=== PATIENT | female | born 1990 | race Caucasian/White ===

== ENCOUNTER 2016-11-08 23:13 | Emergency (ER) | payer OTHER ==
[~2016-11-08 23:13] MED LIST: ACETAMINOPHEN PO; ALBUTEROL17 GM INH; AMOXICILLIN500 M1 PO; AMOXIL500 M1 PO; AUGMENTIN PO; BACTRIM DS TABL1 TA1 PO; BACTRIM DS TABL1 TAB PO; BIRTH CONTROL; CIPRO PO; CORICIDIN COUGH1 TAB PO; DICLOFENAC PO; FLEXERIL PO; FLEXERIL10 MG PO; FLOMAX0.4 MG PO; IBUPROFEN PO; LEVOFLOXACIN500 MG PO; LORTAB 10-5001 EACH PO; METRONIDAZOLE PO; NAPROSYN500 MG PO; NAPROXEN500 M1 PO; NICOTINE PATCH1 EACH TD; NO MEDICATIONS; ORUDIS75 M1 DOB; PEN-VEE K PO; PERCOCET 10/3251 TAB PO; PERCOCET PO; PERCOCET5/325 PO; PHENERGAN PO; PHENERGAN25 MG PO; PRENATAL VITAMI1 TA3 PO; PYRIDIUM100 MG PO; ROBAXIN500 MG PO; SKELAXIN PO; TYLOX 5/500 CAP1 CAP PO; VICODIN 5/1 TAB 5/50 PO; VICODIN 5/500 T1 TAB PO; ZOFRAN ODT4 MG PO; ZOFRAN PO
== END 2016-11-08 23:30 | disposition left against medical advice (07) ==
LOC: CED 23:13
DX: Z53.21 Procedure and treatment not carried out due to patient leaving prior to being seen by health care provider (principal)
CPT/HCPCS: 99282

== ENCOUNTER 2016-11-11 07:01 | Emergency (ER) | payer OTHER ==
[2016-11-11 09:01] LABS: AMPHETAMINE POS (NEG); BARBITURATES NEG (NEG); BENZODIAZEPINES NEG (NEG); COCAINE NEG (NEG); MARIJUANA NEG (NEG); OPIATES POS (NEG); TRICYCLIC ANTIDEPRESSANTS NEG (NEG); U METHADONE NEG (NEG)
== END 2016-11-11 15:06 ==
LOC: CED 07:01
PROVIDERS: Emergency Medicine
DX: T40.1X1A Poisoning by heroin, accidental (unintentional), initial encounter (principal); F19.10 Other psychoactive substance abuse, uncomplicated; R45.851 Suicidal ideations; R56.9 Unspecified convulsions; F90.9 Attention-deficit hyperactivity disorder, unspecified type; F31.9 Bipolar disorder, unspecified; F17.200 Nicotine dependence, unspecified, uncomplicated
CPT/HCPCS: 80307; 84703; 96372; 96374; 99285; J3486

== ENCOUNTER 2016-11-11 15:58 | Inpatient (IN) | payer OTHER ==
--- NOTE | ~2016-11-11 | DS ---
Unit #: [id number] #: [id number] Patient: JUAN MCKEE [id number] [facility] [address] [place] [address] [id number] MR#: [id number] NAME: JAUN MCKEE ROOM: P173 Age: 26 Sex: F Admission Date: 11/11/2016 : 1990 Discharge Date: 11/14/2016 Attending Physician: Patrice Albrecht M.D. Primary Care Physician: Sarah [facility] DISCHARGE SUMMARY REASON FOR ADMISSION Depression. DIAGNOSTIC STUDIES LABORATORY RESULTS: Remarkable for urine drug screen positive for amphetamine and opioids. HOSPITAL COURSE The patient was admitted to inpatient unit on 11/11/2016 and discharged on 11/14/2016. The patient showed improvement, compliant and cooperative, but requested for discharge. The patient was not suicidal or homicidal. The patient hold was up at this time and the patient is not holdable at this time anymore. Subsequently, the patient discharged with a plan to follow up in outpatient program. DISCHARGE MEDICATIONS Effexor XR 225 mg daily for depression, Topamax 50 mg in the morning and 150 mg in the morning, Relafen 500 mg b.i.d. for pain, Keppra 500 mg b.i.d. for seizure, Proventil inhaler b.i.d. The patient was advised to follow up with medical doctor for the prescription as the patient left unplanned at this time. DISCHARGE DIAGNOSES Psychiatric: 1. Mood disorder, not otherwise specified, F32.9. 2. Opioid use disorder, severe, F11.20. 3. Amphetamine use disorder, moderate, F15.20. Secondary diagnosis: Deferred. Medical diagnosis: Lupus. Stressors: Psychosocial stressors. DISCHARGE INSTRUCTIONS The patient to follow up as per social welfare research worker. CONDITION ON DISCHARGE The patient was pleasant and cooperative. Denied any thoughts of harming self or others. Denied any psychotic symptom. PROGNOSIS Guarded. Unit #: [id number] #: [id number] Patient: JUAN MCKEE DIET AND ACTIVITY As tolerated. Dictated by... Srinivas Robert/pepe TD: 11/15/2016 00:07 JOB #: [id number] DISCHARGE SUMMARY Page 1 of 1 X Patrice Albrecht MD DISCHARGE SUMMARY
--- NOTE | ~2016-11-11 | A ---
[facility] Nutrition Therapy DATE: 11/12/16 Patient: JUAN MCKEE Physician: JADA Address: [address] Room/Bed: [address], Zip: [place] [address] Admit Date: 11/11/16 Date of : [birth year] Height: 5 6 Weight: 154 70.3 NUTRITIONAL ASSESSMENT: REASON: NUTRITION RISK POINT- UNINTENTIONAL WEIGHT LOSS PATIENT ADMITTED FOR OVERDOSE, DEPRESSION, AND SUBSTANCE ABUSE PMH: LUPUS, LONG HX SUBSTANCE ABUSE Anthropometrics: HT: 5'6", WT: 151#, BMI: 24.4, %IBW: 116 Labs: NO LABS AVAILABLE Meds: TOPAMAX, KEPPRA Assessment: PATIENT IS A 26 Y/O FEMALE ADMITTED FOR OVERDOSE, DEPRESSION, AND SUBSTANCE ABUSE. PATIENT IS CURRENTLY UNEMPLOYED, LIVES WITH HER MOTHER, SMOKES 1 PPD, AND ATTEMPTED TO OVERDOSE ON HEROIN. PATIENT WAS [facility]ASED [facility] A FEW DAYS AGO. SINCE THEN SHE HAS BEEN NON-COMPLIANT WITH MEDICATIONS. PATIENT HAS A HX OF DAILY HEROIN AND METH USE PRIOR TO GOING TO [facility]. HER TOX SCREEN WAS POSITIVE FOR BOTH HEROIN AND METH. PATIENT WAS IN ED TWICE OVER LAST FEW DAYS D/T OVERDOSE AND EXHIBITING BIZARRE BEHAVIORS. PATIENT STATED A FAIR APPETITE WITH NO WEIGHT CHANGES, AND SHE HAS NOT BEEN SLEEPING. NURSING REPORTS FAIR PO INTAKES. PATIENT'S BMI IS WITHIN A HEALTHY RANGE AND SHE IS 116% OF HER IBW. PATIENT IS ON A REGULAR DIET. THERE ARE NO SKIN OR GI ISSUES NOTED ATT Dx: NO NUTRITION DX Intervention: REGULAR DIET, MEDS PER MD, PSYCH Monitoring, Evaluation and Goals: 1. ADEQUATE PO INTAKES >50% OF MEALS 2. PREVENT, CORRECT MICRO/MACRO NUTRIENT DEFICIENCIES MONITOR: WEIGHTS, LABS, PO/FLUID INTAKES Recommendations: 1. CONTINUE REGULAR DIET TOLERATED 2. ENCOURAGE ADEQUATE PO AND FLUID INTAKES RD TO F/U PER PROTOCOL AND PRN R/T PATIENT NOT AT NUTRITIONAL RISK ATT [facility] Nutrition Therapy DATE: 11/12/16 Patient: JUAN MCKEE Physician: JADA Address: [address] Room/Bed: [address], Zip: [place] [address] Admit Date: 11/11/16 Date of : [birth year] Height: 5 6 Weight: 154 70.3 Respectfully, ELDON BARTLETT RD, LD [facility] cc: client file
--- NOTE | ~2016-11-11 | HP ---
Unit #: [id number] #: [id number] Patient: JUAN MCKEE [id number] [place] [address] [id number] I MR#: [id number] NAME: JUAN MCKEE ROOM: P173 Age: 26 Sex: F Admission Date: 11/11/2016 : 1990 Attending Physician: Patrice Albrecht M.D. Admitting Physician: Patrice Albrecht M.D. Primary Care Physician: Sarah Macdonald [facility] HISTORY AND PHYSICAL HISTORY OF PRESENT ILLNESS Juan is a 26-year-old admitted to [facility] because of her illicit substance abuse. PAST MEDICAL HISTORY 1. Long history of illicit substance abuse. 2. Seizure disorder. 3. Asthma. 4. Patient reports a diagnosis of lupus. PAST SURGICAL HISTORY Nothing reported. ALLERGIES No known drug allergies. SOCIAL HISTORY Smokes 1-pack per day, denies alcohol. Admits to a history of poly illicit substance abuse to include opioids and amphetamines. FAMILY HISTORY Medically noncontributory. REVIEW OF SYSTEMS CONSTITUTIONAL: No fever or chills. HEENT: Denies any sore throat, ear pain or runny nose. CARDIOVASCULAR: Denies chest pain, irregular heart rhythm or palpitations. CHEST: Denies shortness of breath or cough. No hemoptysis. GASTROINTESTINAL: Denies nausea, vomiting, diarrhea or chronic constipation. ENDOCRINE: Denies history of increased thirst or urination. No recent significant weight loss or gain. GENITOURINARY: Denies dysuria, frequency, or hematuria. SKIN: Denies any rashes. HEMATOLOGIC: Denies history of increased bleeding or bruising. MUSCULOSKELETAL: Denies any hot, swollen joints. No generalized muscle pain. NEUROLOGIC: Denies problems with vision or speech. No frequent, severe headaches. No numbness, tingling or weakness in any extremities. Denies loss of bladder or bowel control. CURRENT MEDICATIONS Topamax 150 mg q a.m., 200 mg q h.s. Unit #: [id number] #: [id number] Patient: JUAN MCKEE Tegretol 200 mg q a.m., 400 mg q h.s. KEPPRA 500 mg b.i.d. Proventil inhaler p.r.n. Milk of Magnesia p.r.n. Maalox p.r.n. Tylenol p.r.n. PHYSICAL EXAMINATION GENERAL: Alert, well-nourished, in no apparent distress. VITAL SIGNS: B/P 138/82, heart rate 80, respirations 16, temperature 98.6. WEIGHT: 151 pounds, 5'6" SKIN: Warm and dry without rash or lesion. HEENT: Normocephalic. TMs not viewed. Oral and nasal passages clear. Conjunctivae clear. PERRLA. EOMs intact. NECK: Supple without lymphadenopathy or thyromegaly. HEART: Regular rate and rhythm without murmur. LUNGS: Clear. ABDOMEN: Soft, nontender. : Not done. EXTREMITIES: No evidence of cyanosis, clubbing or edema. Moves all without focal deficit. NEUROLOGICAL: Grossly within normal limits. Cranial Nerves: II: Visual frey are intact. III, IV AND : Extraocular movements are intact. Pupils are equal, round and reactive to light. V: Facial sensation is grossly normal. VII: Facial movements and expression are normal. VIII: Auditory acuity grossly intact. IX, X: Uvula is midline. Phonation is normal. XI: Patient shrugs shoulders and turns head normally. XII: Tongue protrudes in the midline. Sensory and Motor Function: Sensory and motor sensation is grossly normal. Motor: moves all extremities well. Coordination: Gait is normal. Deep Tendon Reflexes: Intact. MEDICAL ASSESSMENT AND PLAN 1. Psychiatric admission. RECOMMENDATIONS 1. Psychiatric, per psychiatrist. 2. I see no contraindications to participating in facility's activities. MEDICAL PROGNOSIS Good. MEDICAL CONDITION Stable. Dictated by... Annabel Muñiz/lori TD: 11/13/2016 04:27 JOB #: [id number] Unit #: [id number] #: [id number] Patient: JUAN MCKEE HISTORY AND PHYSICAL Page 1 of 1 X Nikki Durbin HISTORY AND PHYSICAL
--- NOTE | ~2016-11-11 | PA ---
Unit #: [id number] #: [id number] Patient: JUAN MCKEE [id number] [facility] [address] [place] [address] [id number] I MR#: [id number] NAME: JUAN MCKEE ROOM: P173 Age: 26 Sex: F Admission Date: 11/11/2016 : 1990 Date of Assessment: 11/12/2016 Attending Physician: Patrice Albrecht M.D. Admitting Physician: Patrice Albrecht M.D. [facility]ESS[facility] DATE OF SERVICE 11/12/2016. CHIEF COMPLAINT Ms. Pearson is a 26-year-old female, seen on with a chief complaint of depression. HISTORY OF PRESENT ILLNESS Ms. Pearson presented with depressive symptom, suicide attempt, and opioid abuse. The patient reported that she wanted to use heroin to overdose. The patient reported she attempted overdose on heroin. The patient has been at [facility] twice in the past. [facility]ased [facility] recently, the patient was there for a year. The patient reported she attempted to overdose in an attempt to kill herself. The patient reported she does not remember what happened. The patient tested positive for methamphetamine as well. The patient continues to report feeling of hopelessness, worthlessness, suicidal ideation. Needing inpatient admission at this time for psychiatric stabilization. PAST PSYCHIATRIC HISTORY Remarkable for history of inpatient and outpatient treatment, details unknown at this time. FAMILY AND SOCIAL HISTORY The patient lives with her mother. Good support system. No history of any abuse. History of depression in father and depression and ADHD in brother. MEDICAL HISTORY Unremarkable for any chronic illness except recent overdose and history of lupus. Musculoskeletal; muscle strength and tone, no atrophy or abnormal movement. Gait normal. MEDICATION HISTORY The patient is currently on no psychotropic medication. ALLERGIES No known drug allergies. SUBSTANCE ABUSE HISTORY The patient reported tobacco use, age of onset 11; opioid, age of onset 17; and amphetamine, age of onset 20. Unit #: [id number] #: [id number] Patient: JUAN MCKEE MENTAL STATUS EXAMINATION CONSTITUTIONAL: Measurement of vital signs; temperature 98.2, heart rate 92, respiratory rate 18, oxygen saturation 100%, and blood pressure 138/82. Height 5 feet 6 inches and weight 151 pounds. GENERAL APPEARANCE: The patient dressed casually. The patient did not show any facial deformity. MUSCULOSKELETAL: Please see above. PSYCHIATRIC EXAMINATION Description of speech; regular rate, normal volume, normal articulation, and coherent. Description of thought process, goal directed. Description of association, intact. Description of abnormal psychotic thinking; the patient denied any hallucination or delusions, but having suicidal ideation and substance abuse. Description of the patient's judgment: Concerning everyday activity, poor. Social situation, poor. Concerning psychiatric condition, poor. Complete mental status examination; oriented in time, place, and person. Recent and remote memory, fair. Attention span and concentration, fair. Language, able to name object and repeat phrases. Fund of knowledge, aware of current event and passive vocabulary intact. Mood and affect, sad and dysphoric. Insight and judgment, fair to poor. ASSETS AND LIABILITIES Assets, the patient is articulate and able to take care of her ADL. Liability, history of depression and substance abuse. ADMITTING DIAGNOSES Psychiatric: Major depressive disorder, recurrent, severe, F33.2; opioid use disorder, severe, F11.20; and amphetamine use disorder, moderate, F15.20. Secondary diagnosis: Deferred. Medical diagnosis: Lupus. Stressors: Psychosocial stressors. PSYCHIATRIC PLAN AND TREATMENT GOAL AND DISCHARGE PLAN 1. Advised to admit the patient on the inpatient unit. Provide safe, supportive, and structured environment. 2. Ordered labs; CBC, CMP, UA, UDS, and test. 3. Precaution for self-harm, detox protocol, and detox monitoring. If needed, consider further adjustment of medication. 4. Advised to resume the patient's home medication: Topamax 150 mg in the morning, Tegretol 200 mg in the morning and 400 mg at bedtime, Topamax 200 mg at bedtime, Keppra 500 mg b.i.d., and Proventil inhaler two puff b.i.d. The patient to continue with home medication and consider medication such as Celexa for depression. If needed, consider further adjustment of medication. The patient to attend group therapy, individual therapy, and family session if possible. TREATMENT GOAL To attain euthymic mood, gain insight into her problem, and learn coping skills. DISCHARGE PLAN Unit #: [id number] #: [id number] Patient: JUAN MCKEE Plan to stabilize the patient and consider followup in outpatient program. ESTIMATED LENGTH OF STAY 5 days. Dictated by... Srinivas Robert/pepe TD: 11/12/2016 17:11 JOB #: [id number] PSYCHIATRIC ASSESSMENT Page 1 of 1 X Patrice Albrecht MD X PSYCHIATRIC ASSESSMENT
--- NOTE | ~2016-11-11 | PN ---
Unit #: [id number] #: [id number] Patient: JUAN MCKEE [id number] [facility] [address] [place] [address] [id number] MR#: [id number] NAME: JUAN MCKEE ROOM: 73 Age: 26 Sex: F Admission Date: 11/11/2016 : 1990 Attending Physician: Patrice Albrecht M.D. Admitting Physician: Patrice Albrecht M.D. [facility] PRO[facility]ESS NOT[facility] DATE 11/12/2016 DISCUSSION Ms. Juan Mckee is a 26-year-old female seen on 11/12/2016. Patient interviewed, chart reviewed, obtained information from the nursing staff. The patient continues to report feeling sad, depression, suicidal ideation, withdrawn and isolative. Complete review of systems unremarkable. MENTAL STATUS EXAMINATION General appearance: Patient is dressed casually. Attention span and concentration fair. Oriented in place and person. Mood and affect sad and dysphoric. Speech monotone. Thought process concrete. Patient denied any thoughts of harming others, but having suicidal ideation, withdrawn, sad, depressed. Recent and remote memory fair. Insight and judgement fair to poor. DIAGNOSIS 1. Major depressive disorder, recurrent. 2. Opiate use disorder, moderate. 3. Methamphetamine use disorder, moderate. ASSESSMENT AND PLAN Advise to continue with current medication and therapeutic protocol. If needed, consider further adjustments of medication. Dictated by... Srinivas Robert/marni TD: 11/13/2016 08:04 JOB #: [id number] Unit #: [id number] #: [id number] Patient: JUAN MCKEE [facility] PROGRESS NOTES Page 1 of 1 X Patrice Albrecht MD PROGRESS NOTE
--- NOTE | ~2016-11-11 | CO ---
Unit #: [id number] #: [id number] Patient: JUAN MCKEE [id number] [facility] [address] [place] [address] [id number] I MR#: [id number] NAME: JUAN MCKEE ROOM: [facility] Age: 26 Sex: F Admission Date: 11/11/2016 : 1990 Attending Physician: Patrice Albrecht M.D. Primary Care Physician: Sarah [facility] Consultation Date: 11/12/2016 CONSULTATION REPORT SUBJECTIVE Juan is a 26-year-old who gives history of lupus. She further reports that she is having a "flare up." We have been asked to assess and treat. The patient was started on Relafen 500 mg p.o. b.i.d. She has Tylenol available to her p.r.n. Dictated by... Nikki Durbin P.A.-C. for Srinivas Melchor/pepe TD: 11/12/2016 23:50 JOB #: [id number] CONSULTATION REPORT Page 1 of 1 X Nikki Durbin CONSULTATION REPORT
--- NOTE | ~2016-11-11 | PN ---
Unit #: [id number] #: [id number] Patient: JUAN MCKEE [id number] [facility] [address] [place] [address] [id number] I MR#: [id number] NAME: JUAN MCKEE ROOM: 73 Age: 26 Sex: F Admission Date: 11/11/2016 : 1990 Attending Physician: Patrice Albrecht M.D. Admitting Physician: Patrice Albrecht M.D. [facility] PROGRESS NOTES DATE OF SERVICE 11/14/2016 DISCUSSION Ms. Juan Mckee is a 26-year-old female seen on 11/14/2016. The patient interviewed, chart reviewed. Obtained information from nursing staff. The patient compliant with medication. Currently on Effexor, Topamax, and Tegretol. Reports making progress. No side effects from medication. Affect was bright, mood good. Able to participate in programing. Complete Review of Systems: Unremarkable. MENTAL STATUS EXAMINATION General Appearance: The patient dressed casually. Attention span, concentration: Fair. Oriented in time, place, and person. Mood and affect: Sad, dysphoric. Speech: Monotone. Thought process: The patient denied any thoughts of harming self or others. Recent and remote memory: Poor. Insight and judgment: Poor. DIAGNOSIS Mood disorder not otherwise specified. ASSESSMENT/PLAN Advised to continue with current medication and therapeutic protocol. If needed, consider further adjustment of medication. Dictated by... Srinivas Robert/prosper TD: 11/15/2016 06:50 JOB #: [id number] Unit #: [id number] #: [id number] Patient: JUAN MCKEE PE[facility] PROGRESS NOTES Page 1 of 1 X Patrice Albrecht MD PROGRESS NOTE
--- NOTE | ~2016-11-11 | PN ---
Unit #: [id number] #: [id number] Patient: JUAN MCKEE [id number] [facility] [address] [place] [address] [id number] I MR#: [id number] NAME: JUAN MCKEE ROOM: 73 Age: 26 Sex: F Admission Date: 11/11/2016 : 1990 Attending Physician: Patrice Albrecht M.D. Admitting Physician: Patrice Albrecht M.D. Primary Care Physician: [facility] PROGRESS NOTES DATE OF SERVICE 11/13/2016 DISCUSSION Ms. Pearson is a 26-year-old female seen on 11/13/2016. Patient interviewed, chart reviewed, I obtained information from nursing staff on 11/13/2016. Patient reported that she was on Effexor and also reported pain due to SLE. Patient was seen by the medical doctor and started on medication. Patient still feeling sad, depressed, withdrawn, isolative. COMPLETE REVIEW OF SYSTEMS Unremarkable. MENTAL STATUS EXAMINATION GENERAL APPEARANCE: Patient dressed casually. ATTENTION SPAN AND CONCENTRATION: Fair. Oriented in time, place and person. MOOD AND AFFECT: Sad, depressed. SPEECH: Monotone. THOUGHT PROCESS: [place]. Patient having passive SI, guarded, withdrawn. RECENT AND REMOTE MEMORY: Poor. INSIGHT AND JUDGMENT: Poor. DIAGNOSIS Major depressive disorder, recurrent ASSESSMENT/PLAN Advised to resume Effexor to 225 mg daily. Patient was concerned about urinary tract infection. Plan to follow up on UA. Her urine drug screen was positive for opiates and amphetamine. UA report is pending and also medical consultation. Dictated by... Srinivas Robert/svetlana TD: 11/14/2016 04:08 Unit #: [id number] #: [id number] Patient: JUAN MCKEE JOB #: [id number] [facility] PROGRESS NOTES Page 1 of 1 X Patrice Albrecht MD PROGRESS NOTE
[2016-11-14 09:41] LABS: URINE BILIRUBIN NEG (NEG); URINE BLOOD NEG (NEG); URINE COLOR BROWN; URINE GLUCOSE NORM (NORM); URINE KETONE NEG (NEG); URINE LEUKOCYTE ESTERASE NEG (NEG); URINE NITRATE NEG (NEG); URINE PROTEIN NEG (NEG); URINE UROBILINOGEN NORM (NORM)
[2016-11-14 09:45] LABS: URINE APPEARANCE TURBID
== END 2016-11-14 16:20 | disposition left against medical advice (07) | DRG 885 ==
LOC: P1E 15:58
PROVIDERS: Psychiatry & Neurology Psychiatry
PROC: HZ2ZZZZ Detoxification Services for Substance Abuse Treatment (ICD-10-PCS; principal; 2016-11-11)
DX: F33.2 Major depressive disorder, recurrent severe without psychotic features (principal); M32.9 Systemic lupus erythematosus, unspecified; F11.20 Opioid dependence, uncomplicated; F15.20 Other stimulant dependence, uncomplicated; R45.851 Suicidal ideations; F39 Unspecified mood [affective] disorder; Z81.8 Family history of other mental and behavioral disorders; F17.210 Nicotine dependence, cigarettes, uncomplicated
CPT/HCPCS: 81003; 90732

== ENCOUNTER 2016-11-23 20:20 | Emergency (ER) | payer OTHER | END 2016-11-23 20:35 | disposition home or self-care (01) | LOC: CED 20:20 | DX: T40.1X1A Poisoning by heroin, accidental (unintentional), initial encounter (principal) | CPT/HCPCS: 96374; 99283 ==

== ENCOUNTER 2016-12-25 05:20 | Emergency (ER) | payer OTHER ==
--- NOTE | ~2016-12-25 | CR20 ---
[facility] A Service of [facility] RADIOLOGY TEXT RESULTS PATIENT: JUAN MCKEE LOCATION: SED : [birth year] UNIT #: [id number] AGE: [address]: Darien Amaya MD SEX: F ORDER DR: [id number] [place] [id number] MR#: [id number] Acc #: [id number] NAME: JUAN MCKEE : 1990 SEX: F STUDY DATE/TIME: 12/25/2016 5:54 UNIT: SED ROOM: STUDY DESCRIPTION: CR Ankle Min 3 Views Lt Attending Physician: Darien Amaya M.D. Ordering Physician: Darien Amaya M.D. Primary Care Physician: [facility] MEDICAL IMAGING REPORT This report is preliminary unless electronic signature is present. EXAM Three views left ankle INDICATION Left ankle pain starting last night. No known injury. FINDINGS No acute fracture or subluxation of the left ankle is identified. Patient appears to have an old medial malleolar fracture. No aggressive osseous abnormalities are seen. I do question if there is some mild focal soft tissue swelling anterior to the ankle of uncertain clinical significance. Again no underlying osseous abnormality is seen. IMPRESSION Questionable soft tissue swelling anterior to the ankle. No underlying osseous abnormality seen. Dictated by... Jenn Villeda M.D. THIS IS AN ELECTRONICALLY VERIFIED REPORT Jenn Villeda M.D. at 12/25/2016 3:36 PM HANSEL/shaila TD: 12/25/2016 06:22 JOB #: [id number] MEDICAL IMAGING REPORT Page 1 of 1
[2016-12-25] MEDS ORDERED: TOPAMAX200 MG PO (05:33)
[2016-12-25] MEDS ORDERED: EFFEXOR (05:33)
[2016-12-25] MEDS ORDERED: TOPAMAX PO (05:33)
== END 2016-12-25 06:20 | disposition home or self-care (01) ==
LOC: SED 05:20
DX: M25.572 Pain in left ankle and joints of left foot (principal)
CPT/HCPCS: 29540; 73610; 90715; 99283